=== PATIENT | female | born 1935 | race Hispanic/Latino ===

== ENCOUNTER → 2018-04-20 | Outpatient (CLI) | payer OTHER ==
[~2018-04-20] MED LIST: AEC81 PO; AMLO5TAB7 PO; ISOSORBIDE PO; QUINAPRIL PO; SIMVASTATIN PO; SYMBICORT INHALER IH
== END | disposition home or self-care (01) ==
LOC: OIH 16:26
PROVIDERS: ATTEND Internal Medicine
DX: M43.8X4 Other specified deforming dorsopathies, thoracic region (principal); M85.88 Other specified disorders of bone density and structure, other site; J06.9 Acute upper respiratory infection, unspecified
CPT/HCPCS: 71046; 72220

== ENCOUNTER → 2018-05-15 | Outpatient (CLI) | payer OTHER ==
[~2018-05-15] MED LIST changes: -AMLO5TAB7 PO; +AMLO5TAB9 PO
== END | disposition home or self-care (01) ==
LOC: OIH 14:51
PROVIDERS: ATTEND Internal Medicine
DX: I10 Essential (primary) hypertension (principal); I70.0 Atherosclerosis of aorta; M47.815 Spondylosis without myelopathy or radiculopathy, thoracolumbar region
CPT/HCPCS: 71046

== ENCOUNTER → 2018-07-12 | Outpatient (CLI) | payer OTHER | END | disposition home or self-care (01) | LOC: RAH 11:47 | PROVIDERS: ATTEND Internal Medicine | DX: M85.88 Other specified disorders of bone density and structure, other site (principal); M25.512 Pain in left shoulder | CPT/HCPCS: 73030; 73100 ==